=== PATIENT | male | born 1935 | race Caucasian/White ===

== ENCOUNTER 2020-12-14 13:09 | Inpatient (IN) | payer MEDICARE, OTHER ==
[2020-12-14 15:13] LABS: INR 1.27 (0.9-1.2); PROTHROMBIN TIME 15.1 SECONDS (11.4-13.6); PTT 38.3 SECONDS (22.2-34.7)
[2020-12-14 15:14] LABS: BASOPHIL 0.6 % (0-2); EOSINOPHIL 1.1 % (0-7); HCT 47.1 % (42.0-52.0); HGB 15.6 g/dl (13.2-18.0); LYMPHOCYTE 12.1 % (15-48); MCH 30.2 pg (25.0-31.0); MCHC 33.1 g/dL (32.0-36.0); MCV 91.1 fL (78.0-100.0); MONOCYTE 8.3 % (0-12); MPV 11.6 fL (6.0-9.5); NEUTROPHIL 77.4 % (41-80); NRBC 0; PLT 356 K/uL (150-400); RBC 5.17 M/uL (4.70-6.00); RDW 12.9 % (11.5-14.0); WBC 11.1 K/uL (4.0-10.5)
[2020-12-14 15:20] LABS: ALBUMIN 3.1 g/dL (3.4-5.0); BILIRUBIN - TOTAL 0.8 mg/dL (0.2-1.0); CREATININE 1.11 mg/dL (0.67-1.17); GLOBULIN (CALCULATION) 4.9 g/dL; MAGNESIUM 2.3 mg/dL (1.8-2.4); POTASSIUM 4.3 mmol/L (3.5-5.1)
[2020-12-14 15:21] LABS: IRON % SATURATION 12.8 %SAT (20-50)
[2020-12-14 15:29] LABS: PRO-BNP 209 pg/mL (<450)
[2020-12-15 05:50] LABS: BASOPHIL 0.5 % (0-2); HCT 43.3 % (42.0-52.0); HGB 14.2 g/dl (13.2-18.0); LYMPHOCYTE 12.1 % (15-48); MCH 29.4 pg (25.0-31.0); MCHC 32.8 g/dL (32.0-36.0); MCV 89.6 fL (78.0-100.0); MONOCYTE 9.3 % (0-12); MPV 11.3 fL (6.0-9.5); NEUTROPHIL 76.8 % (41-80); NRBC 0; PLT 288 K/uL (150-400); RBC 4.83 M/uL (4.70-6.00); RDW 12.8 % (11.5-14.0)
[2020-12-15 06:37] LABS: BUN/CREAT RATIO (CALC) 15.3 RATIO; CREATININE 1.11 mg/dL (0.67-1.17); MAGNESIUM 2.4 mg/dL (1.8-2.4); PHOSPHORUS 3.7 mg/dL (2.6-4.7); POTASSIUM 4.5 mmol/L (3.5-5.1)
[2020-12-15] MEDS ORDERED: TOPROL XL 50 MG50 MG PO (14:05)
[2020-12-15] MEDS ORDERED: ASPIRIN EC325 MG PO (14:05)
[2020-12-15] MEDS ORDERED: NORVASC5 MG PO (14:06)
[2020-12-15] MEDS ORDERED: FLOMAX0.4 MG PO (14:06)
--- NOTE | 2020-12-15 22:34 | NUR ---
PT HR WENT BACK INTO AFIB, HR OF 130s, CARDIZEM PUSH WAS GIVEN ORDERED. WILL CONTINUE TO MONITOR
--- NOTE | 2020-12-15 22:40 | NUR ---
PT B/P 125/87, DR NAVARRETE NOTIFIED OF CARDIZEM PUSH BEING GIVEN TO PT, ON PHONE WITH , WILL CONTINUE TO MONITOR
--- NOTE | 2020-12-15 23:03 | NUR ---
FIDEL ZHONG STARTED ON PT JUST NOW BY RN, D-DIMER ORDERED BY [employer] WORKER DR
--- NOTE | 2020-12-15 23:50 | NUR ---
[facility] NOTIFIED OF HR AROUND 140, D-DIMER 3.39. EKG WAS GOTTEN PER ORDERS, FAXED TO DR NAVARRETE
--- NOTE | 2020-12-16 01:10 | NUR ---
PT HR STILL IN 130s, A DOSE OF DIGOXIN WAS ORDERED. ORDERED CTA AND RADIOLOGY CALLED AND STATED PT CANNOT HAVE DYE MORE THAN ONCE IN 24 HRS. HE HAD IT AT 2:15 PM YESTERDAY, SO MUST WAIT UNTIL 24 HRS PASS
--- NOTE | 2020-12-16 01:53 | NUR ---
PT CONVERTED TO NSR AT APPROX. 0145, BP 139/73 HR 72 WILL LEAVE CARDIZEM AND MONITOR B/P EVERY HOUR
[2020-12-16 03:36] LABS: BASOPHIL 0.4 % (0-2); EOSINOPHIL 0.9 % (0-7); HCT 43.5 % (42.0-52.0); HGB 14.3 g/dl (13.2-18.0); LYMPHOCYTE 13.9 % (15-48); MCH 29.7 pg (25.0-31.0); MCHC 32.9 g/dL (32.0-36.0); MCV 90.4 fL (78.0-100.0); MONOCYTE 9.7 % (0-12); NEUTROPHIL 74.5 % (41-80); NRBC 0; PLT 288 K/uL (150-400); RBC 4.81 M/uL (4.70-6.00); RDW 12.9 % (11.5-14.0); WBC 10.8 K/uL (4.0-10.5)
[2020-12-16 03:55] LABS: BUN/CREAT RATIO (CALC) 16.2 RATIO; CREATININE 0.99 mg/dL (0.67-1.17); POTASSIUM 3.9 mmol/L (3.5-5.1)
--- NOTE | 2020-12-16 09:23 | NUR ---
CARDS CAME TO SEE PT THIS AM AND ORDERED 0.25 MG DIGOXIN AT 0830, 1430 AND TO START EVERYDAY STARTING FRIDAY (TOMORROW). ALSO ORDERED TO WEAN PT ON CARDIZEM UNTIL DC AFTER FIRST DOSE DIG.
--- NOTE | 2020-12-16 15:00 | NUR ---
MD INFORMED PT ABOUT HIS NEW DIAGNOSIS AND EXPLAINED.
--- NOTE | 2020-12-16 18:41 | NUR ---
MD VERBAL THAT IF PT GOES BACK INTO SVT TO DO A AMIODORONE BOLUS AND START THE DRIP PER PROTOCOL.
[2020-12-17 04:01] LABS: BASOPHIL 0.4 % (0-2); EOSINOPHIL 1.9 % (0-7); HGB 13.4 g/dl (13.2-18.0); LYMPHOCYTE 14.6 % (15-48); MCH 29.2 pg (25.0-31.0); MCHC 31.9 g/dL (32.0-36.0); MCV 91.5 fL (78.0-100.0); MONOCYTE 10.4 % (0-12); NEUTROPHIL 72.3 % (41-80); NRBC 0; PLT 243 K/uL (150-400); RBC 4.59 M/uL (4.70-6.00); WBC 9.9 K/uL (4.0-10.5)
[2020-12-17 04:31] LABS: PRO-BNP 359 pg/mL (<450)
--- NOTE | 2020-12-17 10:01 | NUR ---
PT HEART RATE WENT FROM 93 TO 156 ON MONITOR. EKG SHOWED SVT RATE OF 153. MD WAS NOTIFIED AND A TELELPHONE ORDER WAS GIVEN TO GIVE 6MG ADENOSINE. PT CONVERTED TO NSR AT 1015 WITH A RATE OF 98 BPM. MD STARTED AMIODORONE BOLUS AT 200 ML/HR. AMIODORONE PROTOCOL WAS STARTED AFTER INTIAL BOLUS RAN. PT IS NOW ON AMIODRONE DRIP STARTED AT 1214 AT A RATE OF 33.3 ML/HR. HEART RATE IS 83 AND IN NSR.
[2020-12-18 05:36] LABS: BASOPHIL 0.4 % (0-2); EOSINOPHIL 2.1 % (0-7); HCT 42.3 % (42.0-52.0); HGB 13.9 g/dl (13.2-18.0); MCH 29.7 pg (25.0-31.0); MCHC 32.9 g/dL (32.0-36.0); MCV 90.4 fL (78.0-100.0); MONOCYTE 8.3 % (0-12); MPV 11.3 fL (6.0-9.5); NEUTROPHIL 79.6 % (41-80); NRBC 0; PLT 256 K/uL (150-400); RBC 4.68 M/uL (4.70-6.00); RDW 13.1 % (11.5-14.0); WBC 10.8 K/uL (4.0-10.5)
[2020-12-18 05:49] LABS: INR 1.3 (0.9-1.2); PROTHROMBIN TIME 15.4 SECONDS (11.4-13.6); PTT 41.1 SECONDS (22.2-34.7)
[2020-12-18 05:56] LABS: BUN/CREAT RATIO (CALC) 12.9 RATIO; CREATININE 0.93 mg/dL (0.67-1.17); MAGNESIUM 2.3 mg/dL (1.8-2.4)
--- NOTE | 2020-12-18 13:44 | NUR ---
12/18/20 Mr. Johnson will be transferred to another acute care. Family preference is [facility].
== END 2020-12-19 19:44 | disposition other institution (70) | DRG 987 ==
LOC: FER 13:09 → FTCU 16:48
PROVIDERS: Emergency Medicine; ADMIT Internal Medicine
PROC: 0W9B30Z Drainage of Left Pleural Cavity with Drainage Device, Percutaneous Approach (ICD-10-PCS; principal; 2020-12-15)
PROC: 07B23ZX Excision of Left Neck Lymphatic, Percutaneous Approach, Diagnostic (ICD-10-PCS; 2020-12-15)
DX: C34.92 Malignant neoplasm of unspecified part of left bronchus or lung (principal); J96.01 Acute respiratory failure with hypoxia; J18.9 Pneumonia, unspecified organism; I47.1 Supraventricular tachycardia; C78.7 Secondary malignant neoplasm of liver and intrahepatic bile duct; J91.0 Malignant pleural effusion; C77.0 Secondary and unspecified malignant neoplasm of lymph nodes of head, face and neck; I10 Essential (primary) hypertension; N40.0 Benign prostatic hyperplasia without lower urinary tract symptoms; G43.909 Migraine, unspecified, not intractable, without status migrainosus; I48.0 Paroxysmal atrial fibrillation; Z87.891 Personal history of nicotine dependence
CPT/HCPCS: 36415; 36600; 70470; 71045; 71260; 80048; 80053; 82607; 82803; 83540; 83550; 83605; 83735; 83880; 84100; 84145; 84443; 84484; 85025; 85379; 85610; 85730; 87040; 87205; 87449; 93005; 94010; 94640; 94667; 94668; J0153; J0282; J1160; J1650; J1885; J2543; J2916; J7030; J7060; Q9967; U0002